=== PATIENT | female | born 1975 | race Caucasian/White ===

== ENCOUNTER 2018-09-05 12:38 | Emergency (ER) | payer OTHER ==
[~2018-09-05] VITALS: Ht 172.7 cm; Wt 122.5 kg
[~2018-09-05 12:38] MED LIST: ATOR10 PO; ATOR40TA PO; CALCIUM + D3 E1 EACH PO; CARB50; DICY20 PO; ESCI10 PO; IRON PO; LOPE2C PO; Lotrisone Cream45 GM EXT; MECL25 PO; MULVITA PO; Magnesium500 MG PO; Naprosyn500 MG PO; PROM25 PO; PROP60; RANI150 PO; Ultram50 MG PO; ZESTORETIC 20-121 EA PO; ZINC15 PO
[2018-09-05] MEDS ORDERED: CEPH500 PO (13:19)
[2018-09-05] MEDS ORDERED: Bactrim 400-801 EACH PO (13:19)
== END 2018-09-05 13:41 | disposition home or self-care (01) ==
LOC: ER 12:38
DX: L02.214 Cutaneous abscess of groin (principal); E78.00 Pure hypercholesterolemia, unspecified; Z88.0 Allergy status to penicillin; Z91.040 Latex allergy status; Z79.899 Other long term (current) drug therapy
CPT/HCPCS: 10061; 99282-25

== ENCOUNTER 2018-12-24 02:37 | Emergency (ER) | payer OTHER ==
[~2018-12-24] VITALS: Ht 172.7 cm; Wt 124.7 kg
[~2018-12-24 02:37] MED LIST changes: +Bactrim 400-801 EACH PO; +CEPH500 PO
[2018-12-24] MEDS ORDERED: POTCHL10ER PO (03:21)
[2018-12-24 03:31] LABS: Source, Urine Clean Catch
[2018-12-24 03:33] LABS: Bilirubin, Urine Neg (Neg); Blood, Urine Neg (Neg); Glucose Qualitative, Urine Neg (Neg); Ketones, Urine Neg (Neg); Leukocyte Esterase, Urine Neg (Neg); Nitrite, Urine Neg (Neg); Protein, Urine Neg (Neg); Specific Gravity, Urine 1.015 (1.003-1.022); Urobilinogen, Urine NORM (Normal)
[2018-12-24 03:37] LABS: Appearance, Urine Clear (Clear); Color, Urine Yellow (P-Yellow)
== END 2018-12-24 04:37 | disposition home or self-care (01) ==
LOC: ER 02:37
PROVIDERS: Emergency Medicine
DX: R10.9 Unspecified abdominal pain (principal); E78.00 Pure hypercholesterolemia, unspecified; Z88.1 Allergy status to other antibiotic agents; Z88.0 Allergy status to penicillin; Z91.040 Latex allergy status; Z79.899 Other long term (current) drug therapy
CPT/HCPCS: 81003; 99284

== ENCOUNTER 2020-11-11 14:00 | Emergency (ER) | payer OTHER ==
[~2020-11-11] VITALS: Ht 172.7 cm; Wt 122.5 kg
[~2020-11-11 14:00] MED LIST changes: +POTCHL10ER PO
[2020-11-11 14:47] LABS: BASOPHILS ABSOLUTE AUTO 0.06 K/mm3 (0.00-0.23); BASOPHILS PERCENT AUTO 1 % (0-2); EOSINOPHILS PERCENT AUTO 2 % (0-6); Hemoglobin 14.3 g/dL (11.5-16.0); IMMATURE GRAN ABSOLUTE AUTO 0.03 K/mm3 (0.00-0.10); IMMATURE GRAN PERCENT AUTO 0 % (0-1); LYMPHOCYTES PERCENT AUTO 34 % (21-46); MONOCYTES ABSOLUTE AUTO 0.71 K/mm3 (0.16-1.47); MONOCYTES PERCENT AUTO 8 % (4-13); Mean Corpuscular HGB 29.4 pg (26.0-34.0); Mean Corpuscular HGB Conc 33.3 g/dL (31.5-36.5); Mean Corpuscular Volume 88 fL (80-100); NEUTROPHILS ABSOLUTE AUTO 5.24 K/mm3 (1.96-9.15); NEUTROPHILS PERCENT AUTO 56 % (41-73); RDW Coefficient Variation 12.7 % (11.7-14.2); RDW Standard Deviation 41.2 fL (35.1-46.3); Red Blood Cell Count 4.87 M/mm3 (3.80-5.20); White Blood Cell Count 9.44 K/mm3 (4.00-11.30)
[2020-11-11 15:05] LABS: Mean Platelet Volume 10.5 fL (9.1-12.4); Platelet Count 236 K/mm3 (150-400)
[2020-11-11 15:08] LABS: Alanine Aminotransfer (ALT/SGP 60 U/L (12-78); Albumin, Blood 3.7 g/dL (3.4-5.0); Alk Phos 83 U/L (50-136); Anion Gap 6 mmol/L (6-16); Aspartate Aminotrans (AST/SGOT 41 U/L (12-37); Bilirubin, Total 0.4 mg/dL (0.1-1.0); Blood Urea Nitrogen 11 mg/dL (8-24); Bun/Creatinine Ratio 15.6 (12.0-20.0); CO2, Blood 26 mmol/L (21-32); Chloride, Blood 108 mmol/L (98-108); Globulin, Blood 3.6 g/dL (2.2-4.0); Glomerular Filtration Rate >60 (60-); Glucose, Blood 111 mg/dL (70-99); Potassium, Blood 3.7 mmol/L (3.5-5.5); Sodium, Blood 140 mmol/L (136-145); Total Protein, Blood 7.3 g/dL (6.4-8.2)
== END 2020-11-11 17:50 | disposition home or self-care (01) ==
LOC: ER 14:00
PROVIDERS: Physician Assistant
DX: K76.0 Fatty (change of) liver, not elsewhere classified (principal); E78.00 Pure hypercholesterolemia, unspecified; Z79.899 Other long term (current) drug therapy; Z88.0 Allergy status to penicillin; Z91.040 Latex allergy status
CPT/HCPCS: 76705; 80053; 81025; 83690; 85025; 99284-25

== ENCOUNTER 2021-01-21 13:51 | Observation (INO) | payer OTHER ==
[~2021-01-21] VITALS: Ht 172.7 cm; Wt 129.3 kg
[2021-01-21 17:57] LABS: Influenza A, PCR NEGATIVE (NEGATIVE); Influenza B, PCR NEGATIVE (NEGATIVE); Resp Syncytial Virus, PCR NEGATIVE (NEGATIVE); SARS-Cov-2 (COVID-19) PCR, MMC NEGATIVE (NEGATIVE)
--- NOTE | 2021-01-21 18:13 | NUR ---
ASSUMMED CARE OF PATIENT. PATIENT UP TO BATHROOM FRO CHECK
--- NOTE | 2021-01-22 04:23 | NUR ---
SHIFT SUMMARY- PT. A&OX4, S/P LAP APPY WITH 3 OP SITES TO ABD. DSG'S C/D/I. C/O MILD TENDERNESS TO ABD DURING THE NIGHT, DENIED NEED FOR PAIN MEDS. PT. AMBULATING TO BATHROOM WITH SBA, TOLERATING WELL. VOIDED SEVERAL TIMES T/O THE NIGHT. ON CL DIET ABLE TO TOLERATE PO FLUIDS, NO C/O NAUSEA. PT. APPEARED TO HAVE RESTED COMFORTABLY T/O THE NIGHT, NO APPARENT DISTRESS NOTED. ON RA, VSS, AND IV FLUIDS INFUSING. CALL LIGHT WITHIN REACH AND SIDE RAILS UPX2. WILL CONT TO MONITOR.
[2021-01-22] MEDS ORDERED: FAMO20 PO (15:06)
--- NOTE | 2021-01-22 17:11 | NUR ---
DISCHARGED TO HOME WITH HER MOM AT 1525. SHE HAS HER INSTRUCTIONS AND BELONGINGS. SHE HAS BEEN INDEPENDENT IN THE ROOM. SHE HAS NOT WANTED A PAIN PILL. SHE DID TAKE A TUMS FOR A LITTLE HEARTBURN. IT WAS EFFECTIVE. SHE DENIED ANY DIFFICULTY VOIDING AND DID PASS SOME FLATUS. ABD LAP WOUNDS ARE WNL. SHE KNOWS SHE IS TO REMOVE THE DRESSINGS, NOT THE STERI STRIPS AND SHOWER TODAY. SHE WILL RECOVER ONLY IF THERE IS BLEEDING. SHE ALSO UNDERSTANDS THAT 'S OFFICE WILL CALL HER AT HOME TO SCHEDULE HER F/U APPT. SHE TOLERATED 100% OF HER REGULAR DIET LUNCH.
== END 2021-01-22 15:25 | disposition home or self-care (01) ==
LOC: ER 13:51 → CT 13:51 → MEDS 13:52 → ER 16:38 → MEDS 19:51
PROVIDERS: Physician Assistant; ADMIT Surgery
PROC: 0DTJ4ZZ Resection of Appendix, Percutaneous Endoscopic Approach (ICD-10-PCS; principal; 2021-01-21 14:30)
DX: K35.80 Unspecified acute appendicitis (principal); Z20.822 Contact with and (suspected) exposure to COVID-19; I10 Essential (primary) hypertension; E78.5 Hyperlipidemia, unspecified; K21.9 Gastro-esophageal reflux disease without esophagitis; Z88.0 Allergy status to penicillin; Z91.040 Latex allergy status
CPT/HCPCS: 0241U; 36415; 74177; 80048; 85027; 88304; 96374-59; 96375; 99285-25; A9270; G0378; J1100; J1885; J1956; J2405; J2550; J2704; J3010; J7042; J7120; Q9967

== ENCOUNTER 2021-01-31 22:34 | Emergency (ER) | payer OTHER ==
[~2021-01-31] VITALS: Ht 172.7 cm; Wt 129.3 kg
[~2021-01-31 22:34] MED LIST changes: +FAMO20 PO
[2021-01-31] MEDS ORDERED: FISH OIL 1,2001 EAC7 PO (23:32)
== END 2021-02-01 01:11 | disposition home or self-care (01) ==
LOC: ER 22:34
DX: G43.909 Migraine, unspecified, not intractable, without status migrainosus (principal); I10 Essential (primary) hypertension; E78.5 Hyperlipidemia, unspecified; K21.9 Gastro-esophageal reflux disease without esophagitis; Z88.0 Allergy status to penicillin; Z91.040 Latex allergy status; Z79.899 Other long term (current) drug therapy
CPT/HCPCS: 96372; 99283; A9270; J1790; J1885

== ENCOUNTER 2022-07-20 09:29 | Emergency (ER) | payer OTHER | END 2022-07-20 10:38 | disposition home or self-care (01) | LOC: ER 09:29 | DX: B37.2 Candidiasis of skin and nail (principal); I10 Essential (primary) hypertension; E78.5 Hyperlipidemia, unspecified; K21.9 Gastro-esophageal reflux disease without esophagitis; Z88.0 Allergy status to penicillin; Z91.040 Latex allergy status; Z79.899 Other long term (current) drug therapy ==

== ENCOUNTER 2022-11-01 19:28 | Emergency (ER) | payer OTHER ==
[~2022-11-01] VITALS: Ht 172.7 cm; Wt 129.3 kg
[~2022-11-01 19:28] MED LIST changes: +Diflucan150 MG PO; +FISH OIL 1,2001 EAC7 PO; +NYAMYC15 G1 TOP
[2022-11-01 20:39] LABS: Influenza A, PCR NEGATIVE (NEGATIVE); Influenza B, PCR NEGATIVE (NEGATIVE); Resp Syncytial Virus, PCR NEGATIVE (NEGATIVE); SARS-Cov-2 (COVID-19) PCR, MMC NEGATIVE (NEGATIVE)
== END 2022-11-01 21:56 | disposition home or self-care (01) ==
LOC: ER 19:28
PROVIDERS: Physician Assistant
DX: J10.1 Influenza due to other identified influenza virus with other respiratory manifestations (principal); Z79.899 Other long term (current) drug therapy; Z88.0 Allergy status to penicillin; Z91.040 Latex allergy status; Z20.822 Contact with and (suspected) exposure to COVID-19
CPT/HCPCS: 0241U

== ENCOUNTER 2023-09-29 10:21 | Day surgery (SDC) | payer OTHER ==
[~2023-09-29] VITALS: Ht 172.7 cm; Wt 127.9 kg
[2023-09-29 12:40] VITALS: BP 137/91
== END 2023-09-29 12:50 | disposition home or self-care (01) ==
LOC: ORSCSDS 10:21
PROVIDERS: Specialist
PROC: 0DJD8ZZ Inspection of Lower Intestinal Tract, Via Natural or Artificial Opening Endoscopic (ICD-10-PCS; principal; 2023-09-29 12:00)
PROC: 0DB58ZX Excision of Esophagus, Via Natural or Artificial Opening Endoscopic, Diagnostic (ICD-10-PCS; principal; 2023-09-29 12:00)
PROC: 0DB68ZX Excision of Stomach, Via Natural or Artificial Opening Endoscopic, Diagnostic (ICD-10-PCS; principal; 2023-09-29 12:00)
DX: K21.9 Gastro-esophageal reflux disease without esophagitis (principal); K44.9 Diaphragmatic hernia without obstruction or gangrene; K22.10 Ulcer of esophagus without bleeding; K25.9 Gastric ulcer, unspecified as acute or chronic, without hemorrhage or perforation; K64.8 Other hemorrhoids; R10.32 Left lower quadrant pain; Z80.0 Family history of malignant neoplasm of digestive organs; F32.A Depression, unspecified; I10 Essential (primary) hypertension; E78.5 Hyperlipidemia, unspecified; E88.810 Metabolic syndrome; E66.9 Obesity, unspecified; Z68.41 Body mass index [BMI] 40.0-44.9, adult; Z79.899 Other long term (current) drug therapy
CPT/HCPCS: 82947; 88305; 88341; 88342; J2704; J7120

== ENCOUNTER → 2024-01-05 | Outpatient (CLI) | payer OTHER | LOC: LAB SHORT 11:02 → LAB 11:02 | DX: N30.01 Acute cystitis with hematuria (principal) | CPT/HCPCS: 87077; 87086; 87186 ==